=== PATIENT | male | born 2000 | race Caucasian/White ===

== ENCOUNTER 2024-11-20 16:11 | Emergency (ER) | payer OTHER, SELFPAY ==
[2024-11-20 16:13] VITALS: BP 129/79
[2024-11-20 16:57] VITALS: BMI 28.2
[2024-11-20 17:01] VITALS: BP 136/77
[2024-11-20 18:11] VITALS: BP 127/90
[2024-11-20 18:37] LABS: Hematocrit 41.3 % (39.0-52.0); Hemoglobin 14.5 g/dL (13.0-18.0); Mean Corp Hgb Conc. 35.1 g/dL (33.0-37.0); Mean Corpuscular Volume 84.8 fL (80.0-94.0); Platelet Count 262 10^3/uL (130-400); Red Cell Dist. Width 12.3 % (11.5-14.5)
[2024-11-20 18:49] LABS: Blood Urea Nitrogen 10 mg/dl (9-20); Calcium 9.9 mg/dl (8.4-10.2); Carbon Dioxide 27 mmol/L (22-30); Chloride 104 mmol/L (98-107); Estimated Creatinine Clearance > 125 ml/min; Glucose 96 mg/dl (70-99); Sodium 138 mmol/L (135-145); eGFR > 60.00
[2024-11-20 19:00] VITALS: BP 138/83
[2024-11-20 19:11] LABS: TSH 1.69 uIU/ml (0.47-4.68)
--- NOTE | 2024-11-20 19:23 | ED.GENMED ---
History of Present Illness
General
Chief Complaint: Heart Rate Problem
Time Seen by Provider: 11/20/24 17:29
History of Present Illness
History of Present Illness:
24-year-old male with history of anxiety and celiac disease presents to the emergency department due to an abnormal Holter monitor. Patient states that for the past 2 years he has been having frequent palpitations and dizzy spells, in the past 2 to
3 months the symptoms seemingly worsening. He does describe occasional episodes last about 10 minutes where he feels profoundly dizzy but does not have any syncope. No chest pain or shortness of breath. He also notes that his heart rate feels
elevated whenever he is very anxious. He had a 72-hour Holter monitor performed by [facility] as an outpatient showing 2 episodes of severe tachycardia and 1 episode of a second-degree type II heart block. He was encouraged to come to the
emergency department for further evaluation. He currently feels well with no complaints
Review of Systems
Review of Systems
Allergies reviewed?: Yes
All Other Systems: ROS reviewed and negative except as documented in HPI and ROS
Phy Exam
Physical Exam
Physical Exam:
GEN: Well appearing, NAD, WDWN
HEENT: Oral mucosa moist, no scleral icterus
Cardiac: Regular rate and rhythm, no murmurs
Lung: No respiratory distress, no tachypnea
MSK: No gross deformity or injuries
Skin: Good color, no pallor or jaundice, no rashes
Neuro: AO x3, moves all extremities freely
Psych: Calm, cooperative
Course
Orders/Labs/Results
Orders:
Orders
11/20/24 16:17
Electrocardiogram (*1) Urgent
Reason for Study: Abnormal EKG
EKG- Treatment ONCE
11/20/24 18:14
Basic Metabolic Panel Urgent
11/20/24 18:15
Complete Blood Count/No Diff Urgent
TSH Urgent
11/20/24 19:06
Potassium Urgent
Abnormal Lab Results
11/20/24
18:15
MPV 10.6 H fL
(7.4-10.4)
11/20/24 18:15
11/20/24 19:06
Vital Signs
Initial and Last Documented VS:
Initial Vital Signs
Temp Pulse Resp BP Pulse Ox
98.0 F 66 16 129/79 97
11/20/24 16:13 11/20/24 16:13 11/20/24 16:13 11/20/24 16:13 11/20/24 16:13
Last Documented Vital Signs
Temp Pulse Resp BP Pulse Ox
98.0 F 64 25 138/83 99
11/20/24 16:13 11/20/24 19:30 11/20/24 19:30 11/20/24 19:00 11/20/24 19:41
MDM/Problems Addressed
MDM/Problems Addressed:
I reviewed the Holter monitor results via and [employer]. The episode of the type II heart block was during sleeping and then he was awake during this episode. Nevertheless the majority of his episodes of palpitations are most likely related to the
tachycardia that was seen, this could be SVT, or excessively fast sinus tachycardia related to anxiety. I did recommend admission to the hospital for cardiology consultation due to the high-grade heart block however the patient does not wish to be
admitted. Given that he has had the symptoms intermittently for the past several months if not years, I feel it is reasonable to continue plan for outpatient follow-up. Will refer him to cardiology as an outpatient for close follow-up, ED return
parameters discussed
Comment
Comment:
EKG independently turbid by me is negative for ischemia, shows normal sinus rhythm
*Pulse Oximetry
SaO2: 97
Oxygen Mode of Delivery: Room air
Patient hypoxic: no
*Critical Care Note
Total Time (30-74mins, 75-104mins- exclusive of procedures): Not Applicable
ED Attending Note
-
Portions of this chart may have been created with voice recognition software.� Occasional wrong word or��sound alike� substitutions may have occurred due to the inherent limitations of voice recognition software.
Discharge Plan
Departure
Patient Disposition: Home (Routine Discharge)
Date of Disposition: 11/20/24
Time of Disposition: 19:42
Patient with high blood pressure during this ER visit?: No
Discharge Problem:
AV block, Mobitz II, Tachycardia
Instructions: Chest Pain CBC Follow Up
Referrals:
Armen Davidson MD [Active, Cardiology]
Referral Note: Office should call you in 24-48 hours
Tracey Newton NP [Family Provider, Family Practice]
Activity Restrictions/Additional Instructions:
If you develop severe lightheadedness or dizziness, for fainting/near fainting episodes, do not hesitate to return to the department
Do not cancel your existing pending cardiology appointment until you can guarantee follow-up with our local [employer] administrator
If you develop chest pain shortness of breath do not hesitate to return
Interventions
Interventions:
*Risk Screen - Suicide Last Done: 11/20/24 16:13
*General Assessment Last Done: 11/20/24 16:57
*Neglect/Abuse Screening Last Done: 11/20/24 16:13
*ED- Fall Risk Assessment Last Done: 11/20/24 16:57
*ED COVID-19 Vaccine History Last Done: 11/20/24 16:57
ED- Cardiac Assessment Last Done: 11/20/24 16:57
ED- Pulmonary Assessment Last Done: 11/20/24 16:57
Discharge Date and Time
Print Language: [place]
[2024-11-20 19:42] LABS: Potassium 4.4 mmol/L (3.5-5.1)
== END 2024-11-20 19:51 | disposition home or self-care (01) ==
LOC: EMR 16:11
PROVIDERS: Physician Assistant; EMERGENCY PHYSICIAN Emergency Medicine; FAMILY PHYSICIAN Nurse Practitioner Family
DX: I44.1 Atrioventricular block, second degree (principal); R00.0 Tachycardia, unspecified
CPT/HCPCS: 99284; 80048; 84132; 84443; 85027; 93005

== ENCOUNTER → 2024-12-18 12:55 | Outpatient (REF) | payer OTHER, SELFPAY | LOC: RCS 12:55 | PROVIDERS: ATTENDING PHYSICIAN Internal Medicine Cardiovascular Disease; FAMILY PHYSICIAN Nurse Practitioner Family | DX: R00.2 Palpitations (principal); I44.1 Atrioventricular block, second degree; R07.89 Other chest pain; R00.0 Tachycardia, unspecified | CPT/HCPCS: 93306 ==